=== PATIENT | female | born 1985 ===

== ENCOUNTER 2020-09-26 21:28 | Outpatient (REF) | payer MEDICAID, SELFPAY ==
[2020-09-26 21:56] LABS: Bilirubin Negative (Negative); Blood Negative (Negative); Clarity Clear (Clear); Glucose Negative (Negative); Ketones Negative (Negative); Leukocyte Esterase Negative (Negative); Nitrite Negative (Negative); Specific Gravity <= 1.005 (1.005-1.025); Urobilinogen 0.2 EU/dL (Up TO 0.2)
== END 2020-09-26 21:29 | disposition home or self-care (01) ==
LOC: LBN 21:28
PROVIDERS: Visit Provider Naturopath
DX: N30.00 Acute cystitis without hematuria (principal)
CPT/HCPCS: 81003